=== PATIENT | female | born 1980 | race Caucasian/White ===

== ENCOUNTER → 2018-07-17 | Outpatient (CLI) | payer OTHER ==
--- NOTE | 2018-07-17 12:05 | RADIOLOGY REPORT (SQ) ---
EXAM DESCRIPTION: CERV SP 3 VIEW OR LESS COMPLETED DATE/TIME: 07/17/2018 10:37 am REASON FOR STUDY: CERVICAL RADICULAPATHY ( FLEX/EXT ONLY) COMPARISON: None. TECHNIQUE: Lateral flexion and extension radiographs of the spine. NUMBER OF VIEWS: Two views. LIMITATIONS: None. FINDINGS: Status post ACD C5-6 and C6-7. Normal alignment, maintained throughout flexion and extens ion. No abnormal motion. OTHER: No other significant finding. IMPRESSION: NO RADIOGRAPHIC EVIDENCE OF ABNORMAL MOTION. TECHNICAL DOCUMENTATION: JOB ID: [id number] [employer]- All Rights Reserved Reading location - IP/workstation name: [email or web address]
== END ==
LOC: RAD 10:20
PROVIDERS: ATTEND Specialist
DX: M54.12 Radiculopathy, cervical region (principal)
CPT/HCPCS: 72040

== ENCOUNTER → 2018-10-16 | Outpatient (CLI) | payer OTHER ==
--- NOTE | 2018-10-16 14:58 | RADIOLOGY REPORT (SQ) ---
EXAM DESCRIPTION: CERV SP 3 VIEW OR LESS COMPLETED DATE/TIME: 10/16/2018 2:31 pm REASON FOR STUDY: CERVICAL RADICULOPATHY COMPARISON: None. NUMBER OF VIEWS: Two views TECHNIQUE: Lateral flexion and extension radiographic images acquired of the cervical spine. LIMITATIONS: None. FINDINGS: MINERALIZATION: Normal. ALIGNMENT: Anatomic. VERTEBRAE: Vertebral bodies of normal height. DISCS: No significant disc space narrowing. No large osteophytes. HARDWARE: An anterior plate extends from C5-C7 with screws into the vertebral bodies. Disc implants are present at C5-6 and C6-7. SOFT TISSUES: No masses or calcifications. Lung apices clear. OTHER: There is no instability between flexion and extension. IMPRESSION: Surgical changes. No instability. TECHNICAL DOCUMENTATION: JOB ID: [id number] [employer]- All Rights Reserved Reading location - IP/workstation name: [email or web address]
== END ==
LOC: RAD 14:11
PROVIDERS: ATTEND Specialist
DX: M54.12 Radiculopathy, cervical region (principal)
CPT/HCPCS: 72040

== ENCOUNTER → 2019-01-16 | Outpatient (CLI) | payer OTHER ==
--- NOTE | 2019-01-16 12:37 | RADIOLOGY REPORT (SQ) ---
EXAM DESCRIPTION: CERV SP 3 VIEW OR LESS COMPLETED DATE/TIME: 01/16/2019 10:35 am REASON FOR STUDY: *FLEX/EXT ONLY* CERVICAL RADICULOPATHY (M54.12) M54.12 RADICULOPATHY, CERVICAL RE GION COMPARISON: LATERAL FLEXION AND EXTENSION CERVICAL SPINE FILMS 10/16/2018 NUMBER OF VIEWS: TWO VIEWS TECHNIQUE: Lateral flexion, lateral extension radiographic images acquired of the cervical spine. LIMITATIONS: None. FINDINGS: MINERALIZATION: Normal. ALIGNMENT: Anatomic. No instability on flexion/extension. VERTEBRAE: Vertebral bodies of normal height. DISCS: Post fusion with metallic disc spacers and anterior fixation plate at C5-6 and C6-7 HARDWARE: Post fusion with metallic disc spacers and anterior fixation plate at C5-6 and C6-7 SOFT TISSUES: No masses or calcifications. Lung apices clear. OTHER: No other significant finding. IMPRESSION: No instability on flexion/ extension. Hardware in good alignment TECHNICAL DOCUMENTATION: JOB ID: [id number] [employer]- All Rights Reserved Reading location - IP/workstation name: [email or web address]
== END ==
LOC: RAD 10:05
PROVIDERS: ATTEND Specialist
DX: M54.12 Radiculopathy, cervical region (principal)
CPT/HCPCS: 72040

== ENCOUNTER → 2019-02-10 | Outpatient (CLI) | payer OTHER ==
--- NOTE | 2019-02-10 12:56 | RADIOLOGY REPORT (SQ) ---
EXAM DESCRIPTION: CT ORBIT/SELLA WITHOUT COMPLETED DATE/TIME: 02/10/2019 11:37 am REASON FOR STUDY: (H92.01)OTALGIA, RIGHT EAR H92.01 OTALGIA, RIGHT EAR COMPARISON: None. TECHNIQUE: Noncontrasted thin section axial images through the temporal bones and skull base were ob tained and reviewed at bone windows and bone algorithm with coronal and sagittal reconstructions. All CT scanners at this facility use dose modulation, iterative reconstruction, and/or weight based d osing when appropriate to reduce radiation dose to as low as reasonably achievable (ALARA). [facility]: Dose Right [facility]: CareDose [facility]: Dose Right [facility]: Teradose 4D [facility]: [employer] RADIATION DOSE: mGy. LIMITATIONS: None. FINDINGS: RIGHT SIDE: EXTERNAL AUDITORY CANAL: Narrowed. Mucosal soft tissue thickening. TYMPANIC MEMBRANE: Thickened. OSSICLES AND MIDDLE EAR CAVITY: The incus and malleus are invested with soft tissue. INNER EAR STRUCTURES: Normal vestibule and cochlea. Normal aqueducts. INTERNAL AUDITORY CANAL: Normal bony canal without narrowing or widening. No calcified or ossified m asses. TEMPOROMANDIBULAR JOINT: Normal. MASTOID AIR CELLS: Clear. LEFT SIDE: EXTERNAL AUDITORY CANAL: Widely patent. TYMPANIC MEMBRANE: No masses, thickening or medial retraction. OSSICLES AND MIDDLE EAR CAVITY: Normal ossicles. No middle ear masses or fluid. INNER EAR STRUCTURES: Normal vestibule and cochlea. Normal aqueducts. INTERNAL AUDITORY CANAL: Normal bony canal without narrowing or widening. No calcified or ossified m asses. TEMPOROMANDIBULAR JOINT: Normal. MASTOID AIR CELLS: Clear. CENTRAL SKULL BASE: Normal foramina. No lytic or blastic lesions. INFERIOR BRAIN: Limited view. No acute findings. PARANASAL SINUSES: There is a prominent air-fluid level in the right maxillary sinus with a somewhat frothy appearance. No nasal polyps. Maxillary sinus outlets are patent. IMPRESSION: 1. Likely external otitis on the right. 2. Thickening of the right tympanic membrane. 3. 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 4. Right maxillary sinus disease. TECHNICAL DOCUMENTATION: JOB ID: [id number] Quality ID # [id number]: Final reports with documentation of one or more dose reduction techniques (e.g., Au tomated exposure control, adjustment of the mA and/or kV according to patient size, use of iterative reconstruction technique) 2010 [employer]- All Rights Reserved Reading location - IP/workstation name: [email or web address]
== END ==
LOC: RAD 11:31
PROVIDERS: ATTEND Family Medicine
DX: H60.8X1 Other otitis externa, right ear (principal); J32.0 Chronic maxillary sinusitis; H92.01 Otalgia, right ear
CPT/HCPCS: 70480